=== PATIENT | male | born 1940 | race Caucasian/White ===

== ENCOUNTER 2022-09-11 09:34 | Outpatient (CLI) | payer MEDICARE, OTHER | END 2022-09-11 23:59 | disposition home or self-care (01) | LOC: RAD 09:34 | PROVIDERS: ATTEND Internal Medicine Gastroenterology | DX: K44.9 Diaphragmatic hernia without obstruction or gangrene (principal); K22.2 Esophageal obstruction; R13.10 Dysphagia, unspecified | CPT/HCPCS: 74220 ==

== ENCOUNTER 2024-06-20 14:35 | Outpatient (CLI) | payer MEDICARE, OTHER | END 2024-06-20 23:59 | disposition home or self-care (01) | LOC: CARD DIAG 14:35 | PROVIDERS: ATTEND Student in an Organized Health Care Education/Training Program | DX: I08.0 Rheumatic disorders of both mitral and aortic valves (principal); R01.1 Cardiac murmur, unspecified | CPT/HCPCS: 93306 ==

== ENCOUNTER 2024-06-24 08:12 | Outpatient (CLI) | payer MEDICARE, OTHER | END 2024-06-24 23:59 | disposition home or self-care (01) | LOC: US 08:12 | PROVIDERS: ATTEND Student in an Organized Health Care Education/Training Program | DX: R09.89 Other specified symptoms and signs involving the circulatory and respiratory systems (principal) | CPT/HCPCS: 76705 ==

== ENCOUNTER 2024-07-10 08:31 | Outpatient (CLI) | payer MEDICARE | END 2024-07-10 23:59 | disposition home or self-care (01) | LOC: VAS 08:31 | PROVIDERS: ATTEND Family Medicine | DX: I70.0 Atherosclerosis of aorta (principal); R09.89 Other specified symptoms and signs involving the circulatory and respiratory systems | CPT/HCPCS: 93978 ==